=== PATIENT | female | born 1935 | race Caucasian/White ===

== ENCOUNTER 2021-02-26 15:48 | Inpatient (IN) | payer MEDICARE, OTHER ==
[~2021-02-26 15:48] MED LIST: ADVAIR 250-501 EACH INH; ASPIRIN81 MG PO; CARVEDILOL3.125 MG PO; CERTAGEN1 EACH PO; LEVOTHYROXINE125 MCG PO; LISINOPRIL10 MG PO; MECLIZINE25 MG PO; MILK OF MA400 MG/5 M PO; NEXIUM40 MG PO; NITROGLYCERIN0.4 MG SL; SPIRIVA18 MCG INH
[2021-02-26 17:21] LABS: BASOPHIL 0.4 % (0-2); EOSINOPHIL 0.7 % (0-7); HCT 54.5 % (37.0-47.0); HGB 18.3 g/dl (12.5-16.0); MCH 31.4 pg (25.0-31.0); MCHC 33.6 g/dL (32.0-36.0); MCV 93.5 fL (78.0-100.0); MONOCYTE 6.1 % (0-12); MPV 9.3 fL (6.0-9.5); NEUTROPHIL 81.7 % (41-80); NRBC 0; PLT 326 K/uL (150-400); RBC 5.83 M/uL (4.20-5.40); RDW 13.8 % (11.5-14.0); WBC 13.8 K/uL (4.0-10.5)
[2021-02-26 17:25] LABS: INR 1.02 (0.9-1.2); PROTHROMBIN TIME 12.7 SECONDS (11.4-13.6); PTT 23.6 SECONDS (22.2-34.7)
[2021-02-26 17:38] LABS: ALBUMIN 3.8 g/dL (3.4-5.0); BILIRUBIN - TOTAL 1.8 mg/dL (0.2-1.0); BUN/CREAT RATIO (CALC) 24.2 RATIO; C-REACTIVE PROTEIN 2.9 mg/dL (<=0.90); CREATININE 1.2 mg/dL (0.51-0.95); GLOBULIN (CALCULATION) 3.9 g/dL; POTASSIUM 4.2 mmol/L (3.5-5.1); TOTAL PROTEIN 7.7 g/dL (6.4-8.2)
[2021-02-26 17:47] LABS: LACTIC ACID 2.3 mmol/L (0.4-1.9)
[2021-02-26] MEDS ORDERED: COREG 3.125M3.125 MG PO (21:06)
[2021-02-26] MEDS ORDERED: ALLERGY RELIEF5 MG PO (21:06)
[2021-02-26] MEDS ORDERED: ZESTRIL5 MG PO (21:07)
[2021-02-26] MEDS ORDERED: SINGULAIR10 MG PO (21:07)
[2021-02-26] MEDS ORDERED: ANTIVERT25 MG PO (21:07)
[2021-02-26] MEDS ORDERED: LASIX20 MG PO (21:09)
[2021-02-26] MEDS ORDERED: PROTONIX 40MG T40 MG PO (21:09)
[2021-02-27 06:04] LABS: BASOPHIL 0.7 % (0-2); EOSINOPHIL 3.1 % (0-7); HCT 45.2 % (37.0-47.0); LYMPHOCYTE 22.6 % (15-48); MCH 31.7 pg (25.0-31.0); MCHC 33.2 g/dL (32.0-36.0); MCV 95.6 fL (78.0-100.0); MONOCYTE 7.3 % (0-12); NEUTROPHIL 65.3 % (41-80); NRBC 0; PLT 241 K/uL (150-400); RBC 4.73 M/uL (4.20-5.40); RDW 13.8 % (11.5-14.0); WBC 10.5 K/uL (4.0-10.5)
[2021-02-27 06:24] LABS: ALBUMIN 2.7 g/dL (3.4-5.0); BILIRUBIN - TOTAL 1.6 mg/dL (0.2-1.0); BUN/CREAT RATIO (CALC) 28.6 RATIO; CREATININE 0.98 mg/dL (0.51-0.95); GLOBULIN (CALCULATION) 2.9 g/dL; POTASSIUM 3.9 mmol/L (3.5-5.1)
[2021-02-27 06:28] LABS: TOTAL PROTEIN 5.6 g/dL (6.4-8.2)
--- NOTE | 2021-02-27 13:28 | NUR ---
MEET WITH PT AND DAUGHTER, OPHELIA. [phone]. PT. RESIDES ALONE AND WALKS WITH A CANE. PER THE DAUGHTER PT MAY GO TO HER HOME TO RECUPERATE. OPHELIA STATES THAT HER MOTHER HAS AGREED TO HAVE A PRIVATE CAREGIVER. IF PT REQUIRES HH THEY HAVE NOT DECIDED WHICH ONE. THEY WERE GIVEN THE THREE CHOICES, [facility], INTREPID AND [facility].
[2021-02-28 06:12] LABS: BUN/CREAT RATIO (CALC) 24.7 RATIO; CREATININE 0.89 mg/dL (0.51-0.95); POTASSIUM 3.3 mmol/L (3.5-5.1)
[2021-02-28 06:24] LABS: EOSINOPHIL 4.8 % (0-7); HCT 44.7 % (37.0-47.0); HGB 14.4 g/dl (12.5-16.0); LYMPHOCYTE 23.3 % (15-48); MCH 31.2 pg (25.0-31.0); MCHC 32.2 g/dL (32.0-36.0); MCV 96.8 fL (78.0-100.0); MONOCYTE 9.4 % (0-12); MPV 9.3 fL (6.0-9.5); NEUTROPHIL 60.5 % (41-80); NRBC 0; PLT 244 K/uL (150-400); RBC 4.62 M/uL (4.20-5.40); RDW 13.6 % (11.5-14.0)
--- NOTE | 2021-02-28 13:53 | NUR ---
MET WITH PT. DISCUSSED PT. HAVING HH. SHE WAS IN AGREEMENT. ADVISED THAT [facility] CAN ACCEPT PT. THEY HAVE THE STAFF TO OFFER SERVICES. PT. WAS IN AGREEMENT. PT. HAS A CANE. TC TO DAUGHTER, OPHELIA AVITIA. [phone]. SHE ADVISED THAT HER MOTHER WOULD NEED A WHEELCHAIR. SHE ALSO ADVISED THAT HER MOTHER IS COMING TO HER HOME AT [address] [place] [address] BRENNA ROJAS. ADVISED LILLY AT [facility] THAT PT. WILL BE GOING TO [facility] [facility] [facility] [employer]. AVISED DR. RUDOLPH THAT HH HAS BEEN SET UP AND WHEELCHAIR HAS BEEN ORDERED. ADVISED NURSECAROL ANN OF THE ABOVE INFORMATION.
[2021-02-28] MEDS ORDERED: K-DUR20 MEQ PO (14:22)
== END 2021-02-28 16:00 | disposition home health service (06) | DRG 389 ==
LOC: FER 15:48 → FMS 19:23
PROVIDERS: Emergency Medicine; Nurse Practitioner; ADMIT Internal Medicine
DX: K91.31 Postprocedural partial intestinal obstruction (principal); J98.11 Atelectasis; K52.9 Noninfective gastroenteritis and colitis, unspecified; E87.6 Hypokalemia; I11.0 Hypertensive heart disease with heart failure; I50.9 Heart failure, unspecified; G20 Parkinson's disease; F02.80 Dementia in other diseases classified elsewhere, unspecified severity, without behavioral disturbance, psychotic disturbance, mood disturbance, and anxiety; Z96.653 Presence of artificial knee joint, bilateral; Z20.822 Contact with and (suspected) exposure to COVID-19; I25.10 Atherosclerotic heart disease of native coronary artery without angina pectoris; I73.00 Raynaud's syndrome without gangrene; G62.9 Polyneuropathy, unspecified; E03.9 Hypothyroidism, unspecified; K21.9 Gastro-esophageal reflux disease without esophagitis; J44.9 Chronic obstructive pulmonary disease, unspecified; Z96.611 Presence of right artificial shoulder joint; Z98.890 Other specified postprocedural states; Z95.1 Presence of aortocoronary bypass graft; Z90.710 Acquired absence of both cervix and uterus; Z87.891 Personal history of nicotine dependence; Z90.49 Acquired absence of other specified parts of digestive tract; Z88.5 Allergy status to narcotic agent
CPT/HCPCS: 36415; 71045; 74250; 80048; 80053; 83605; 83690; 83735; 84145; 85025; 85610; 85730; 86140; 87040; 94010; C9113; J1170; J1200; J1650; J2405; J2543; J7030; U0002

== ENCOUNTER 2021-03-31 22:12 | Emergency (ER) | payer MEDICARE, OTHER ==
[~2021-03-31 22:12] MED LIST changes: +ALLERGY RELIEF5 MG PO; +ANTIVERT25 MG PO; +COREG 3.125M3.125 MG PO; +K-DUR20 MEQ PO; +LASIX20 MG PO; +PROTONIX 40MG T40 MG PO; +SINGULAIR10 MG PO; +ZESTRIL5 MG PO
[2021-03-31] MEDS ORDERED: NORCO 5-325 TA1 EACH PO (23:26)
[2021-03-31] MEDS ORDERED: ONDANSETRON ODT4 MG PO (23:26)
== END 2021-03-31 23:50 | disposition home or self-care (01) ==
LOC: FER 22:12
DX: S09.93XA Unspecified injury of face, initial encounter (principal); S51.811A Laceration without foreign body of right forearm, initial encounter; S81.812A Laceration without foreign body, left lower leg, initial encounter; S51.012A Laceration without foreign body of left elbow, initial encounter; K08.419 Partial loss of teeth due to trauma, unspecified class; I11.0 Hypertensive heart disease with heart failure; I50.9 Heart failure, unspecified; J44.9 Chronic obstructive pulmonary disease, unspecified; F03.90 Unspecified dementia, unspecified severity, without behavioral disturbance, psychotic disturbance, mood disturbance, and anxiety; Z95.1 Presence of aortocoronary bypass graft; Z88.2 Allergy status to sulfonamides; Z88.5 Allergy status to narcotic agent; W19.XXXA Unspecified fall, initial encounter; Y92.009 Unspecified place in unspecified non-institutional (private) residence as the place of occurrence of the external cause
CPT/HCPCS: 73020; 73070